=== PATIENT | female | born 1970 | race Caucasian/White ===

== ENCOUNTER 2019-06-23 07:31 | Day surgery (SDC) | payer OTHER ==
[~2019-06-23] VITALS: Ht 162.6 cm; Wt 105.3 kg
[2019-06-23] VITALS (12 sets, daily range): BP systolic 125–164; BP diastolic 68–94; PULSE 73–92; RESP 15–24; Ht 162.6 cm; Wt 105.3 kg
[~2019-06-23 07:31] MED LIST: IBUP800T48 PO
[2019-06-23] MEDS ORDERED: LACTATED RINGER'S 1,000 ML IV SCH (08:30)
[2019-06-23] MEDS ORDERED: ONDANSETRON 4 MG INJ IV PRN (10:00)
[2019-06-23] MEDS ORDERED: OXYCODONE/ACETAMINOPHEN (5/325) TAB PO PRN ×2 (10:00)
[2019-06-23] MEDS ORDERED: LABETALOL HCL 20MG INJ IV PRN (10:00)
[2019-06-23] MEDS ORDERED: hydrALAzine 20 MG INJ IV PRN (10:00)
[2019-06-23] MEDS ORDERED: HYDROmorphONE 1 MG/5 ML IV SYRINGE IV PRN ×3 (10:00)
[2019-06-23] MEDS ORDERED: POLYMYXIN/BACITRACIN 1L IRRIG IRR ONE (10:02)
[2019-06-23] MEDS ORDERED: BUPIVACAINE 0.5% 30 ML VIAL INJ ONE (10:02)
[2019-06-23] MEDS ORDERED: HYDROmorphONE 2 MG/ML SYG ONE (10:31)
[2019-06-23] MEDS ORDERED: ROCURONIUM 50 MG INJ ONE ×2 (10:31→10:35)
[2019-06-23] MEDS ORDERED: MIDAZOLAM 1 MG/ML 2 ML INJ ONE (10:31)
[2019-06-23] MEDS ORDERED: LIDOCAINE 2% (SDV) 5 ML INJ ONE (10:31)
[2019-06-23] MEDS ORDERED: PROPOFOL 20 ML ONE (10:31)
[2019-06-23] MEDS ORDERED: ROPIVACAINE 0.5 % 30 ML VIAL ONE (10:42)
[2019-06-23] MEDS ORDERED: CEFAZOLIN 1 GM INJ ONE (10:43)
[2019-06-23] MEDS ORDERED: ONDANSETRON 4 MG INJ ONE (10:43)
[2019-06-23] MEDS ORDERED: EPHEDrine 25 MG/5 ML SYG ONE (11:37)
[2019-06-23] MEDS ORDERED: SUGAMMADEX SODIUM 200 MG/2 ML VIAL IV ONE (11:38)
== END 2019-06-23 14:03 | disposition home or self-care (01) ==
LOC: SUR 07:31 → SDS 07:31 → SUR 14:03
PROVIDERS: ATTEND Specialist
DX: S52.571A Other intraarticular fracture of lower end of right radius, initial encounter for closed fracture (principal); X58.XXXA Exposure to other specified factors, initial encounter
CPT/HCPCS: 25608; 73110; 84703; C1713; J0690; J1170; J2250; J2405; J2795; Z7512; Z7610